=== PATIENT | male | born 1955 | race Caucasian/White ===

== ENCOUNTER → 2017-03-14 | Day surgery (SDC) | payer BC ==
[2017-03-12 13:06] LABS: INR 0.88; PROTHROMBIN TIME 12.4 seconds (11.9-14.5)
[2017-03-12 13:07] LABS: PARTIAL THROMBOPLASTIN TIME 27.1 seconds (23.8-35.5)
[~2017-03-14] MED LIST: BUPIVACAINE HCL 0.5% INJ 30 ML VIAL INJ ONE; CEFAZOLIN SOD 1 GM/NS 50ML 50 ML IV ONE; DEXAMETHASONE SOD PHOS INJ 4 MG/ML VIAL ONE; FENTANYL CITRATE/PF 100MCG/2 ML INJ ONE; LEVOTHYROXINE100 MC1 PO; LIDOCAINE HCL 2% LOCAL INJ 5 ML SDV VIAL INJ ONE; LOTENSIN20 MG PO; MIDAZOLAM HCL 2 MG/2 ML VIAL ONE; ONDANSETRON HCL INJ 2 MG/ML VIAL ONE; PROPOFOL IV EMULSION 10 MG/ML 20 ML VIAL ONE; SEVOFLURANE INHAL SOLN 250 ML PEN BTL ONE; ULTRAM50 MG PO; VERAPAMIL HCL360 MG PO
--- NOTE | 2017-03-15 14:04 | Operative Report ---
DATE OF PROCEDURE: March 14, 2017 PREOPERATIVE DIAGNOSIS: Left carpal tunnel syndrome, G56.02. POSTOPERATIVE DIAGNOSIS: Left carpal tunnel syndrome, G56.02. PROCEDURE: Left carpal tunnel release, 30285. ANESTHESIA: General. INDICATIONS: The patient is a 61-year-old man who presents with severe left carpal tunnel syndrome and was taken to the operating room for decompression. DETAILS OF PROCEDURE: After the induction of general anesthesia, the patient was placed on the operating table in supine position. The left arm and hand were prepped and draped in circumferential fashion. A tourniquet was then inflated over the upper arm to 250 mmHg. A small midline incision was created over the median palmar crease of the hand just distal to the distal flexor crease of the wrist. The subcutaneous fat was divided. The transverse carpal ligament was identified and was incised with a number 15C blade, and the underlying median nerve came into view. As the assistant district attorney retracted the skin edges, the transverse carpal ligament was divided proximally and distally until the full length of the ligament was exposed and decompressed within the carpal tunnel. The point of maximum compression of the nerve appeared to be about 3 cm distal to the distal flexor crease of the wrist where the ligament was at its thickest. More distally, the recurrent motor branch of the nerve was preserved within its fat pad. The wound was copiously irrigated with Bacitracin solution. Meticulous hemostasis was secured, and the subcutaneous layer was closed with a 3-0 Vicryl suture. The skin was closed with a 3-0 nylon suture in a vertical mattress fashion. A dressing was applied. The hand was wrapped. The patient was awakened, extubated and taken to the postanesthesia care unit in stable condition. No intraoperative complications were encountered. Estimated blood loss was minimal. Job#: [id number]
== END | disposition home or self-care (01) ==
LOC: OR 09:05
PROVIDERS: ATTEND Neurological Surgery
DX: G56.02 Carpal tunnel syndrome, left upper limb (principal); E03.9 Hypothyroidism, unspecified; I10 Essential (primary) hypertension; G47.33 Obstructive sleep apnea (adult) (pediatric); Z01.810 Encounter for preprocedural cardiovascular examination; Z01.812 Encounter for preprocedural laboratory examination; Z68.32 Body mass index [BMI] 32.0-32.9, adult; Z87.891 Personal history of nicotine dependence
CPT/HCPCS: 36415; 64721; 85610; 85730; 93005; J1100; J2001; J2250; J2405